=== PATIENT | male | born 1960 | race Caucasian/White ===

== ENCOUNTER → 2017-05-21 | Outpatient (CLI) | payer OTHER | END | disposition home or self-care (01) | LOC: CFH 12:01 | PROVIDERS: ATTEND Internal Medicine Nephrology | DX: I12.9 Hypertensive chronic kidney disease with stage 1 through stage 4 chronic kidney disease, or unspecified chronic kidney disease (principal); E11.22 Type 2 diabetes mellitus with diabetic chronic kidney disease; N18.3 Chronic kidney disease, stage 3 (moderate); R80.3 Bence Jones proteinuria; E78.5 Hyperlipidemia, unspecified | CPT/HCPCS: 76770 ==

== ENCOUNTER 2017-07-15 06:17 | Day surgery (SDC) | payer OTHER ==
[~2017-07-15] VITALS: Ht 188 cm; Wt 125.7 kg
[2017-07-15] MEDS ORDERED: SODIUM CHLORIDE 0.9% 1,000 ML IV SCH (07:02)
[2017-07-15 07:04] VITALS: BP 124/71
[2017-07-15] MEDS ORDERED: FENOFIBRATE PO (07:09)
[2017-07-15] MEDS ORDERED: ATOR20TA9 PO (07:09)
[2017-07-15] MEDS ORDERED: ALLO300T PO (07:09)
[2017-07-15] MEDS ORDERED: AMLO10TA2 PO (07:09)
[2017-07-15] MEDS ORDERED: METFORMIN PO (07:09)
[2017-07-15] MEDS ORDERED: FLUMAZENIL 0.1 MG/1 ML, 5ML ONE (07:50)
[2017-07-15] MEDS ORDERED: NALOXONE 1 MG/ML, 2ML ONE (07:50)
[2017-07-15] MEDS ORDERED: FENTANYL PF 100 MCG/2ML ONE (07:50)
[2017-07-15] MEDS ORDERED: MIDAZOLAM 1 MG/ML, 5ML ONE (07:50)
== END 2017-07-15 11:00 ==
LOC: OUT 06:17
PROVIDERS: ATTEND Internal Medicine Nephrology
DX: E11.22 Type 2 diabetes mellitus with diabetic chronic kidney disease (principal); I12.9 Hypertensive chronic kidney disease with stage 1 through stage 4 chronic kidney disease, or unspecified chronic kidney disease; N18.9 Chronic kidney disease, unspecified; R80.9 Proteinuria, unspecified; E11.40 Type 2 diabetes mellitus with diabetic neuropathy, unspecified; N05.1 Unspecified nephritic syndrome with focal and segmental glomerular lesions; N02.8 Recurrent and persistent hematuria with other morphologic changes
CPT/HCPCS: 36415; 50200; 77012; 85610; 88300; 88329; 99156; 99157; J2250; J3010; J2310